=== PATIENT | male | born 1960 | race Caucasian/White ===

== ENCOUNTER → 2016-11-19 | Outpatient (CLI) | payer OTHER ==
[~2016-11-19] MED LIST: ASPI-99 PO; HYDR-3580 PO; HYDR25TA5 PO; IBUP800T23 PO; LANS30CA PO; MENSTAB5 PO; MULT-267 PO; OMEGCAP21 PO; TAMS0.4C4 PO; TRAM50TA PO; TRIPCAP4 PO
[2016-11-19 10:04] LABS: HEMATOCRIT 42.4 % (39.0-51.0); MEAN CELL VOLUME 83.2 FL (80.0-100.0); MEAN CORPUSCULAR HEMOGLOBIN 28.8 PG (27.0-34.0); MEAN CORPUSCULAR HGB CONC 34.7 % (32.0-36.0); PLATELET COUNT 259 TH/MM3 (150-450); RED BLOOD COUNT 5.09 MIL/MM3 (4.50-5.90); RED CELL DISTRIBUTION WIDTH 14.4 % (11.6-17.2); REVIEW FLAG FINAL; WHITE BLOOD COUNT 8.7 TH/MM3 (4.0-11.0)
[2016-11-19 10:16] LABS: PROTHROMBIN TIME - PATIENT 10.8 SEC (9.8-11.6)
[2016-11-19 10:16] LABS: BACTERIA, URINE MOD /hpf; BLOOD, URINE NEG (NEG); GLUCOSE,URINE NEG (NEG); HYALINE CAST, URINE 1 /lpf (RARE); KETONE, URINE NEG (NEG); MUCUS URINE FEW /lpf (OCC); PH, URINE 5.5 (5.0-8.5); SQUAMOUS EPITHELIAL CELL URINE <1 /hpf (0-5); URINE COLOR YELLOW (YELLW/STRAW)
[2016-11-19 10:21] LABS: NITRITE,URINE POS (NEG)
[2016-11-19 10:22] LABS: COMMENT (UR) CULTURE INDICATED; CULTURE IF INDICATED CULTURE INDICATED
[2016-11-19 10:30] LABS: BICARBONATE 31.3 MEQ/L (21.0-32.0); POTASSIUM 4.5 MEQ/L (3.5-5.1)
--- NOTE | 2016-11-19 14:25 | EKG ---
Date Performed: 11/19/2016 Time Performed: 09:19:59 PTAGE: 55 years EKG: Sinus rhythm LOW QRS VOLTAGE IN PRECORDIAL LEADS NONSPECIFIC T-WAVE ABNORMALITY BORDERLINE ECG NO PREVIOUS TRACING DOCTOR: Tomas Wilson Interpretating Date/Time 11/19/2016 14:22:12
== END ==
LOC: CPRE 08:58
PROVIDERS: ATTEND Orthopaedic Surgery
DX: Z01.810 Encounter for preprocedural cardiovascular examination (principal); Z01.812 Encounter for preprocedural laboratory examination; M16.11 Unilateral primary osteoarthritis, right hip; I10 Essential (primary) hypertension; M79.609 Pain in unspecified limb; R94.31 Abnormal electrocardiogram [ECG] [EKG]; B96.20 Unspecified Escherichia coli [E. coli] as the cause of diseases classified elsewhere
CPT/HCPCS: 36415; 80048; 81001; 85027; 85610; 85730; 87077; 87086; 87186; 93005

== ENCOUNTER 2016-12-03 05:31 | Day surgery (SDC) | payer OTHER ==
[~2016-12-03] VITALS: Ht 185.4 cm; Wt 132.3 kg
[~2016-12-03 05:31] MED LIST changes: -ASPI-99 PO; -HYDR-3580 PO; -MULT-267 PO; -OMEGCAP21 PO
[2016-12-03 05:55] VITALS: BP 177/97; PULSE 81; RESP 16; TEMP 98.8; O2SAT 96
[2016-12-03] MEDS ORDERED: LACTATED RINGER'S 1000 ML IV PRN (06:00)
[2016-12-03] MEDS ORDERED: METOPROLOL TARTRATE 25 MG TAB PO PRN (06:00)
[2016-12-03] MEDS ORDERED: INSULIN HUMAN REGULAR 1,000 UNITS/10 ML VIAL SQ PRN (06:00)
[2016-12-03] MEDS ORDERED: CHLORHEXIDINE GLUCONATE 2 % 1 PACK (2 CLOTHS) TOPICAL PRN (06:00)
[2016-12-03] MEDS ORDERED: GENTAMICIN SULFATE 80 MG/2 ML VIAL ONE (06:00)
[2016-12-03] MEDS ORDERED: POVIDONE IODINE 5% (ANTISEPSIS KIT) 4 APPLICATIONS EACH NARE PRN (06:00)
[2016-12-03] MEDS ORDERED: SODIUM CHLORID 0.9% 500 ML IV PRN (06:00)
[2016-12-03] MEDS ORDERED: CHLORHEXIDINE GLUCONATE 4% SOLN 120 ML BTL TOPICAL SCH (06:15)
[2016-12-03] MEDS ORDERED: CLINDAMYCIN 900 MG/NS 100 ML IV SCH ×2 (06:15)
[2016-12-03] MEDS ORDERED: EXPAREL PERI-ARTICULAR INJECTION (TOTAL VOL. 60 ML) P-ARTICULR SCH ×2 (07:00)
[2016-12-03] MEDS ORDERED: SODIUM CHLORIDE 0.9% IV SCH ×2 (07:00→10:00)
[2016-12-03] MEDS ORDERED: TRANEXAMIC ACID IV SCH ×2 (07:00→10:00)
== END 2016-12-03 07:03 | disposition home or self-care (01) ==
LOC: HSDI 05:31 → UNDOADMIN 05:31 → HSDC 05:31 → EDSTATUS 07:00 → UNDODISIN 07:03 → HSDC 07:03
PROVIDERS: ATTEND Orthopaedic Surgery
DX: Z53.8 Procedure and treatment not carried out for other reasons (principal); M16.11 Unilateral primary osteoarthritis, right hip; L98.9 Disorder of the skin and subcutaneous tissue, unspecified; I10 Essential (primary) hypertension
CPT/HCPCS: 86850; 86900; 86901; 99211; G0463; J1580; J7120

== ENCOUNTER 2016-12-14 11:39 | Inpatient (IN) | payer OTHER ==
[~2016-12-14] VITALS: Ht 185.4 cm; Wt 139.2 kg
[~2016-12-14 11:39] MED LIST changes: -MENSTAB5 PO; -TRIPCAP4 PO
[2017-01-21] MEDS ORDERED: MULT-267 PO (15:21)
[2017-01-21] MEDS ORDERED: OMEGCAP21 PO (15:21)
[2017-01-22] MEDS ORDERED: SODIUM CHLORID 0.9% 500 ML IV PRN (05:45)
[2017-01-22] MEDS ORDERED: CHLORHEXIDINE GLUCONATE 2 % 1 PACK (2 CLOTHS) TOPICAL PRN (05:45)
[2017-01-22] MEDS ORDERED: POVIDONE IODINE 5% (ANTISEPSIS KIT) 4 APPLICATIONS EACH NARE PRN (05:45)
[2017-01-22] MEDS ORDERED: METOPROLOL TARTRATE 25 MG TAB PO PRN (05:45)
[2017-01-22] MEDS ORDERED: LACTATED RINGER'S 1000 ML IV PRN (05:45)
[2017-01-22] MEDS ORDERED: CHLORHEXIDINE GLUCONATE 4% SOLN 120 ML BTL TOPICAL SCH (05:45)
[2017-01-22] MEDS ORDERED: INSULIN HUMAN REGULAR 1,000 UNITS/10 ML VIAL SQ PRN (05:45)
[2017-01-22 05:49] VITALS: BP_SYST 157; BP_SYST 159; BP_DIAS 90; BP_DIAS 95; PULSE 88; RESP 18; TEMP 98.6; O2SAT 96
[2017-01-22] MEDS ORDERED: GENTAMICIN SULFATE 80 MG/2 ML VIAL ONE (06:08)
[2017-01-22] MEDS ORDERED: ceFAZolin 2 GM PREMIX 50 ML ONE (06:34)
[2017-01-22] MEDS ORDERED: ACETAMINOPHEN 1000 MG/100 ML VIAL IV ONE (06:36)
[2017-01-22] MEDS ORDERED: DEXAMETHASONE SOD PHOS 4 MG/ML VIAL ONE (06:37)
[2017-01-22] MEDS ORDERED: FAMOTIDINE 20 MG/2 ML VIAL ONE (06:37)
[2017-01-22] MEDS ORDERED: MIDAZOLAM HCL 2 MG/2 ML VIAL ONE (06:37)
[2017-01-22] MEDS ORDERED: fentaNYL CITRATE 250 MCG/5 ML AMP ONE (06:37)
[2017-01-22] MEDS ORDERED: SODIUM CHLORIDE 0.9% IV SCH ×2 (07:00→10:00)
[2017-01-22] MEDS ORDERED: EXPAREL PERI-ARTICULAR INJECTION (TOTAL VOL. 60 ML) P-ARTICULR SCH ×2 (07:00)
[2017-01-22] MEDS ORDERED: TRANEXAMIC ACID IV SCH ×2 (07:00→10:00)
[2017-01-22] MEDS ORDERED: ROPIVACAINE PERI-ARTICULAR INJECTION. P-ARTICULR SCH ×5 (07:00)
--- NOTE | 2017-01-22 08:54 | HHI.FF ---
Face to Face Verification Diagnosis: (1) Status post total hip replacement, right Physical Therapy Gait training Hip: Total hip, Protocol: Right, Posterior hip precautions, Progress to weight bearing Canvas Knee Splint: When in bed & 2 pillows btw thighs Right LE Weight Bearing: WB as tolerated Right LE Range of Motion: Active ROM Nursing Nursing: Dressing changes Dressing Changes: Daily dressing change, Coverderm/Primapore Additional Instructions Remove steristrips on postop day 14. I have seen patient Timothy Delaney on 01/22/17. My clinical findings support the need for the requested home health care services because: Ltd mobility - disease progression Limited ability to care for self High risk of falls I certify that my clinical findings support that this patient is homebound because: Post-op weakness Unsteady gait/balance Unsafe to leave home unassisted Gaby Vera MD (Charles) Jan 22, 2017 08:54
[2017-01-22] MEDS ORDERED: [UNRECOGNIZED DRUG - OTHER] PO SCH (09:00)
[2017-01-22] MEDS: ASPIRIN EC 81 MG TABEC PO SCH ×2 (09:00→23:06)
[2017-01-22] MEDS: PANTOPRAZOLE SOD 40 MG DELAYED RELEASE TAB PO SCH (09:00)
[2017-01-22] MEDS ORDERED: MORPHINE SULFATE 8 MG/ML INJ IV PUSH PRN (09:00)
[2017-01-22] MEDS ORDERED: BISACODYL 10 MG SUPP RECTAL PRN (09:00)
[2017-01-22] MEDS ORDERED: MAGNESIUM HYDROXIDE SUSP 30 ML CUP PO PRN (09:00)
[2017-01-22] MEDS ORDERED: ZOLPIDEM TARTRATE 5 MG TAB PO PRN (09:00)
[2017-01-22] MEDS ORDERED: TRANEXAMIC ACID INJ 0 MG in SODIUM CHLORIDE 0.9% INJ 100 ML IV SCH (09:00)
[2017-01-22] MEDS ORDERED: ONDANSETRON HCL 4 MG/2 ML VIAL IVP PRN (09:00)
[2017-01-22] MEDS: HYDROCHLOROTHIAZIDE 25 MG TAB PO SCH (09:00)
[2017-01-22] MEDS: SODIUM CHLORIDE 0.9% FLUSH 5 ML FLUSH IVF SCH ×2 (09:00→21:00)
[2017-01-22] MEDS ORDERED: SODIUM CHLORIDE 0.9% FLUSH 5 ML FLUSH IVF PRN (09:00)
[2017-01-22] MEDS ORDERED: DO NOT ADM ANY ANTICOAGULANT DRUGS PRN (09:19)
[2017-01-22] MEDS ORDERED: Post-op Orders (for Pharmacy) MISC XX ONE (09:30)
[2017-01-22] MEDS: LACTATED RINGER'S 1000 ML INJ 1,000 ML IV SCH ×2 (09:30→21:18)
[2017-01-22] MEDS ORDERED: *morphine SULFATE 8 MG/ML PERIprocedure ONLY ONE ×2 (09:44→10:07)
[2017-01-22] MEDS: KETOROLAC TROMETHAMINE 30 MG/ML (IVP) VIAL IVP SCH ×2 (09:55→18:25)
--- NOTE | 2017-01-22 09:59 | RADRPT ---
EXAM DATE/TIME: 01/22/2017 09:40 [place] COMPARISON: No previous studies available for comparison. INDICATIONS : Post op right total hip. MEDICAL HISTORY : None. SURGICAL HISTORY : None. ENCOUNTER: Initial ACUITY: 1 day PAIN SCORE: 6/10 LOCATION: Right Hip. FINDINGS: Right total hip arthroplasty is present. Hardware appears intact. Alignment is anatomic. Visualized a djacent pelvis is unremarkable. CONCLUSION: Satisfactory appearance post right STERLING Tim Pedersen MD on January 22, 2017 at 9:55 Board Certified Radiologist. This report was verified electronically.
[2017-01-22 12:00] VITALS: BP 133/81; PULSE 82; RESP 13; TEMP 96.7; O2SAT 92
[2017-01-22] MEDS ORDERED: PROPOFOL 200 MG/20 ML AMP IV ONE (12:00)
[2017-01-22] MEDS ORDERED: NEOSTIGMINE 3 MG/3 ML SYR IV ONE (12:00)
[2017-01-22] MEDS ORDERED: ePHEDrine/NS 25 MG/5 ML SYR IV ONE (12:00)
[2017-01-22] MEDS ORDERED: PHENYLEPH/NS 1000 MCG/10 ML SYR IV ONE (12:00)
[2017-01-22] MEDS ORDERED: LACTATED RINGER'S 1000 ML INJ 2,000 ML IV ONE (12:00)
--- NOTE | 2017-01-22 13:14 | PD.PN.STU ---
Subjective Remarks Patient is a 56 yo male post-operative for total right hip replacement for severe osteoarthritic changes of the right hip. The patient states that there is some pain from movement from the bed to the chair. He believes his pain is well controlled on the current medication at this time. He reports that he had some physical therapy done in the bed earlier in the day. He states that PT might have him start to walk this evening but is definitely planning on more ambulation tomorrow with PT. He denies N/V, fever, chills, chest pain, new neurological/musculoskeletal weakness, or visual changes. Denies cough and has not had a bowel movement yet. PMH: GERD, HTN, osteoarthritic changes of the right hip and right knee, vocal cord polyp Past Surgical History: Right knee replacement, vocal cord polyp removal/BX Social: Denies tobacco, alcohol, illicit drugs Home Medications:HCTZ, tamulosin, Protonix Objective Vitals Physical Exam: General: In no acute distress& laying in chair comfortably HEENT: No conjunctival changes EYE: Extraocular muscles intact Cardiovascular: s1 and s2 appreciated, no rubs, murmurs, gallops Pulmonary: Clear to auscultation bilaterally, non labored breathing Abdominal: No pain on light palpation, no rebound or guarding Extremities: Posterior tibial pulses palpated bilaterally, Warm and good perfusion. Surgical Dressing on right hip with no signs purulent discharge or infection Psych: Patient is cooperative, alert, and pleasant. Alert and oriented X4 Vital Signs Date Time Temp Pulse Resp B/P Pulse Ox O2 Delivery O2 Flow Rate FiO2 01/22/17 10:25 97.6 86 15 135/75 95 Nasal Cannula 3 01/22/17 10:00 89 16 156/80 95 Nasal Cannula 3 01/22/17 09:45 82 15 145/73 95 Nasal Cannula 3 01/22/17 09:30 83 15 138/71 99 Nasal Cannula 3 01/22/17 09:22 97.9 70 15 131/66 97 Nasal Cannula 3 01/22/17 05:49 98.6 88 18 157/90 96 159/95 I/O 01/21/17 01/21/17 01/21/17 01/22/17 01/22/17 01/22/17 07:00 15:00 23:00 07:00 15:00 23:00 Intake Total 2200 ml Output Total 150 ml Balance 2050 ml Intake IV Total 200 ml Other 2000 ml Output Urine Total 0 ml Estimated Blood Loss 150 ml A/P Assessment and Plan Diagnostic Impression: 1. Postoperative right total hip 2. HTN 3. GERD 4. BPH Imaging Reviewed Operative Note Reviewed CBC & CMP Continue medications Surgery Following Continue PT this is consultation note pt seen and examined as above with at bedside chart reviwed plan of care dw student labs for am post op abx pain management and wound care per ortho post dvt prophylsix per ortho will follow thank you dr singh for consult will follow with you Osmel Maguire Jan 22, 2017 13:14 Erick Tang MD Jan 22, 2017 14:30
[2017-01-22] MEDS: ACETAMINOPHEN/HYDROcodone 325 MG/7.5 MG TAB PO PRN ×2 (15:11→23:07)
[2017-01-22 16:00] VITALS: BP 150/90; PULSE 85; RESP 16; TEMP 97.5; O2SAT 96
[2017-01-22 20:20] VITALS: BP 158/88; PULSE 91; RESP 17; TEMP 98.6; O2SAT 98
[2017-01-22] MEDS ORDERED: TAMSULOSIN HCL 0.4 MG CAP PO SCH (21:00)
[2017-01-23 00:25] VITALS: BP_SYST 108; BP_SYST 130; BP_DIAS 65; BP_DIAS 81; PULSE 71; PULSE 81; RESP 16; RESP 17; TEMP 97.1; TEMP 97.5; O2SAT 96; O2SAT 97
[2017-01-23] MEDS: KETOROLAC TROMETHAMINE 30 MG/ML (IVP) VIAL IVP SCH ×3 (00:48→12:50)
[2017-01-23 04:15] VITALS: BP 141/74; PULSE 85; RESP 17; TEMP 97; O2SAT 95
[2017-01-23] MEDS: ACETAMINOPHEN/HYDROcodone 325 MG/7.5 MG TAB PO PRN ×3 (06:28→15:05)
--- NOTE | 2017-01-23 07:01 | PD.ORT.PN ---
Subjective Post Op Day #: 1 Subjective Remarks He is doing well. There is some incisional pain.. Distance Walked 5 feet twice. Objective Vitals Vital Signs Date Time Temp Pulse Resp B/P Pulse Ox O2 Delivery O2 Flow Rate FiO2 01/23/17 04:15 97.0 85 17 141/74 95 01/23/17 01:48 18 01/23/17 00:25 97.1 81 17 130/81 96 01/22/17 23:43 18 01/22/17 21:00 Room Air 01/22/17 20:20 98.6 91 17 158/88 98 01/22/17 16:00 97.5 85 16 150/90 96 01/22/17 12:00 96.7 82 13 133/81 92 01/22/17 10:25 97.6 86 15 135/75 95 Nasal Cannula 3 01/22/17 10:00 89 16 156/80 95 Nasal Cannula 3 01/22/17 09:45 82 15 145/73 95 Nasal Cannula 3 01/22/17 09:30 83 15 138/71 99 Nasal Cannula 3 01/22/17 09:22 97.9 70 15 131/66 97 Nasal Cannula 3 I/O 01/22/17 01/22/17 01/22/17 01/23/17 01/23/17 01/23/17 07:00 15:00 23:00 07:00 15:00 23:00 Intake Total 3340 ml 720 ml 480 ml Output Total 1275 ml 700 ml Balance 2065 ml 720 ml -220 ml Intake Oral 480 ml 720 ml 480 ml IV Total 860 ml Other 2000 ml Output Urine Total 1125 ml 700 ml Estimated Blood Loss 150 ml # Voids 3 3 # Bowel Movements 0 0 Imaging Hip x-ray looks good. Last 72 hours Impressions Hip X-Ray 01/22/17 0000 Signed Impressions: Service Date/Time: Sunday, January 22, 2017 09:40 - CONCLUSION: Satisfactory appearance post right STERLING Tim Pedersen MD Objective Remarks He is resting comfortably, supine in bed. The neurovascular status is intact. The dressing is dry and intact. Assessment & Plan Ortho Post Op Day #: 1 Problem List: (1) Status post total hip replacement, right Plan: Continue postop care and PT. Assessment and Plan Condition: Good. Orthopaedically stable. DVT prophylaxis: ASA, TEDs, sequentials. Discharge plans : Home with C. Has appointment. Rx [place] 7.5/325 Gaby Vera MD (Charles) Jan 23, 2017 07:01
[2017-01-23 07:39] VITALS: BP 143/80; PULSE 88; RESP 17; TEMP 98.6; O2SAT 96
[2017-01-23] MEDS ORDERED: ASPI-99 PO (07:42)
[2017-01-23] MEDS ORDERED: HYDR-3580 PO (07:42)
[2017-01-23] MEDS: HYDROCHLOROTHIAZIDE 25 MG TAB PO SCH (08:22)
[2017-01-23] MEDS: ASPIRIN EC 81 MG TABEC PO SCH (08:22)
[2017-01-23] MEDS: PANTOPRAZOLE SOD 40 MG DELAYED RELEASE TAB PO SCH (08:22)
[2017-01-23] MEDS: SODIUM CHLORIDE 0.9% FLUSH 5 ML FLUSH IVF SCH (08:22)
[2017-01-23] MEDS ORDERED: MULTIVITAMIN TAB PO SCH (09:00)
[2017-01-23 09:05] VITALS: O2SAT 94
[2017-01-23] MEDS: LACTATED RINGER'S 1000 ML INJ 1,000 ML IV SCH (09:48)
[2017-01-23 11:48] VITALS: BP 154/87; PULSE 93; RESP 17; TEMP 98.2; O2SAT 95
[2017-01-23 12:10] LABS: HEMATOCRIT 42.2 % (39.0-51.0); MEAN CORPUSCULAR HEMOGLOBIN 28.2 PG (27.0-34.0); MEAN CORPUSCULAR HGB CONC 33.2 % (32.0-36.0); PLATELET COUNT 225 TH/MM3 (150-450); RED BLOOD COUNT 4.97 MIL/MM3 (4.50-5.90); RED CELL DISTRIBUTION WIDTH 14.1 % (11.6-17.2); REVIEW FLAG FINAL; WHITE BLOOD COUNT 11.8 TH/MM3 (4.0-11.0)
--- NOTE | 2017-01-23 12:12 | PD.PN.STU ---
Subjective Remarks Patient is a 56 yo male POD 2 for total right hip replacement for severe osteoarthritic changes of the right hip. The patient states that his pain is well controlled and there is only some discomfort after walking around on the floor. He believes the norco is controlling his pain well. He is able to get to the chair and bathroom by himself at this point. Patient states that the surgery told him that he would be able to go home later today. Just awaiting CBC & BMP. He denies N/V, fever, chills, chest pain, new neurological/ musculoskeletal weakness, or visual changes. PMH: GERD, HTN, osteoarthritic changes of the right hip and right knee, vocal cord polyp Past Surgical History: Right knee replacement, vocal cord polyp removal/BX Social: Denies tobacco, alcohol, illicit drugs Home Medications:HCTZ, tamulosin, Protonix Family HX: Negative Objective Vitals Objective Objective Vitals Physical Exam: General: In no acute distress& laying in chair comfortably HEENT: No conjunctival changes EYE: Extraocular muscles intact Cardiovascular: s1 and s2 appreciated, no rubs, murmurs, gallops Pulmonary: Clear to auscultation bilaterally, non labored breathing Abdominal: No pain on light palpation, no rebound or guarding Extremities: Posterior tibial pulses palpated bilaterally, Warm and good perfusion. Surgical Dressing on right hip with no signs purulent discharge or infection Psych: Patient is cooperative, alert, and pleasant. Alert and oriented X4 Vital Signs Date Time Temp Pulse Resp B/P Pulse Ox O2 Delivery O2 Flow Rate FiO2 01/23/17 11:48 98.2 93 17 154/87 95 01/23/17 09:05 94 21 01/23/17 07:39 98.6 88 17 143/80 96 01/23/17 07:39 18 01/23/17 07:39 18 01/23/17 07:16 Room Air 01/23/17 04:15 97.0 85 17 141/74 95 01/23/17 00:25 97.1 81 17 130/81 96 01/22/17 23:43 18 01/22/17 21:00 Room Air 01/22/17 20:20 98.6 91 17 158/88 98 01/22/17 16:00 97.5 85 16 150/90 96 I/O 6/27/01/22/17 01/22/17 01/23/17 01/23/17 01/23/17 07:00 15:00 23:00 07:00 15:00 23:00 Intake Total 3340 ml 720 ml 480 ml Output Total 1275 ml 700 ml Balance 2065 ml 720 ml -220 ml Intake Oral 480 ml 720 ml 480 ml IV Total 860 ml Other 2000 ml Output Urine Total 1125 ml 700 ml Estimated Blood Loss 150 ml # Voids 3 3 # Bowel Movements 0 0 A/P Assessment and Plan Diagnostic Impression: 1. Postoperative right total hip POD 1 2. HTN 3. GERD 4. BPH Awaiting CBC & CMP Continue medications Surgery Following Continue PT Plan for DC Patient seen and examined as above Labs reviewed Discussed with medical student about above note and plan of care Discussed with patient Patient is going home today Overall a stable this is consultation note pt seen and examined as above with at bedside chart reviwed plan of care dw student labs for am post op abx pain management and wound care per ortho post dvt prophylsix per ortho will follow thank you dr singh for consult will follow with you Osmel Maguire Jan 23, 2017 12:12 Erick Tang MD Jan 23, 2017 12:38
[2017-01-23 12:33] LABS: BICARBONATE 28.5 MEQ/L (21.0-32.0); POTASSIUM 3.7 MEQ/L (3.5-5.1)
[2017-01-23] MEDS ORDERED: DOCUSATE SODIUM 100 MG CAP PO SCH (21:00)
--- NOTE | 2017-01-24 07:31 | MP ---
cc: Monserrat BUSTOS. DATE OF SURGERY 01/22/2017 PREOPERATIVE DIAGNOSIS Osteoarthritis right hip. POSTOPERATIVE DIAGNOSIS Osteoarthritis right hip. OPERATION PERFORMED Right total hip arthroplasty with Irene prosthesis. SURGEON Nicholas Bustos MD [employer] Lynette Beltre R.N. and ALVIN Wise INDICATIONS AND FINDINGS This 56-year-old man has at least a 3-year history of right hip pain. He had arthroscopic removal of loose bodies in 2013, but has had progressive worsening of his pain to the point that he can walk only 500 feet due to the pain. He has stiffness on motion with catching, giving-way and difficulty ascending and descending stairs, difficulty sleeping and other mechanical symptoms. He has not responded to anti-inflammatory agents, the above-noted arthroscopic surgery, analgesics and activity modification and ambulatory aids. Physical findings showed limited range of motion in the hip with tenderness on motion and a significantly antalgic gait. X-rays showed severe osteoarthritis with loss of articular cartilage to [id number] with large osteophytes, subchondral sclerosis and subchondral cysts. OPERATIVE FINDINGS Consistent with radiographic findings with there being a deformation of the femoral head and acetabular osteophytes of a large proportion with subchondral sclerosis and erosion of the articular cartilage. The prosthesis used was a [place] prosthesis with the acetabular component being a Tritanium hemispherical cluster cup shell size 54 mm outer diameter with a Trident X3 0 degrees polyethylene insert, 32 mm inner diameter. A single screw was used. The femoral component was an Accolade II stem size 6 x 132 degree neck angle with a Biolox Delta ceramic head size 32 mm outer diameter with a neck length of +0. PROCEDURE The patient was brought to the operating room and a general anesthetic was administered. He was placed into a lateral position on a Biomet positioner with an axillary roll under the left shoulder. He received prophylactic antibiotics in the form of Ancef and also received Tranexamic acid according to the protocol. The right hip was then prepped with alcohol, Hibiclens and Chloraprep and draped in the usual manner with the hip draped free. A posterolateral incision was made going from about 5 cm distal to the tip of the greater trochanter and curving posteriorly over the fibers of the gluteus salvador for a total of approximately 15-18 cm. The incision was deepened through subcutaneous tissues to the fascia corey and gluteus fascia which were identified. A 2-3 cm incision was made into the fascial corey up to the tip of the greater trochanter and then posteriorly into the gluteus salvador. Dissection was carried down to the posterior aspect of the hip. A Charnley retractor was inserted with wound towels. The interval between the gluteus minimus and the pyriformis was developed and a retractor placed. The piriformis and obturator externus conjoined tendon was released from the undersurface of the greater trochanter and reflected posteriorly. The capsulotomy was carried out going over to the upper acetabulum and down towards the upper portion of the neck and then curving down from inside the hip towards the lesser trochanter. The hip was dislocated. The femoral neck was transected with the oscillating saw at the appropriate level. The femoral head was removed. The retractor was positioned in place. Femoral preparation was initiated with the box osteotome followed by a rongeur and a canal finding awl. The broaching was initiated at size zero and went in one size increments up to size six. This gave excellent fit and fill and did not progress further. When this was seated, the hip was repositioned and the acetabulum exposed. Retractors were placed about the acetabulum. A small incision was made in the inferior capsule to allow for visualization. With retractors in place, the soft tissues were removed from the acetabulum. Reaming then started at 47 mm and went in 1 mm increments up to a size 54. The 54 mm trial was impacted into place and appeared appropriate. After this was done and removed, a 54 mm Tritanium cluster cup was impacted into place. A single drill hole was made into the upper portion of this and a single screw placed. This gave excellent fixation. The liner was then inserted after irrigating this. The anterior osteophytes and superior osteophytes were trimmed and removed. Local anesthetic was administered peripherally around the acetabulum. Attention was directed the femur. Calcar planing was carried out followed by placement of the head and neck prosthesis. The hip was reduced with an +0 neck length, 132 degrees neck prosthesis. The stability was excellent. There was no pistoning. The leg lengths appeared appropriate. The motion was excellent. The hip was then dislocated. The broach was removed. The medullary canal was cleaned with pulse lavage. Local anesthetic was injected about the proximal femur. The femoral prosthesis was impacted into the proximal femur and seated appropriately. The trial reduction was again carried out with a +0 neck length and was as previously noted. This was then removed and the actual Biolox Delta ceramic head was impacted onto the cleaned and dried trunnion of the femur. When this was appropriately seated, the hip was reduced. The motion was excellent. The stability was excellent. The leg length was appropriate. There was no pistoning. The wound closure then commenced using transosseous sutures of #1 Vicryl with a Krackow technique for reattachment of the capsule and external rotators into the appropriate positions. Prior to reattachment of the piriformis and obturator externum, the capsule was repaired with a running #1 Vicryl suture. The fascia corey and gluteus fascia were repaired with #1 Vicryl interrupted [id number] sutures. Local anesthesia was administered into the structures. The subcutaneous tissues were closed with 2-0 Vicryl interrupted simple sutures with buried knots. The skin was closed with continuous subcuticular closure of 4-0 Monocryl. The wound was then dressed with Steri-Strips followed by dry dressing, sterile ABD and Medipore compression hip dressing. A knee immobilizer was applied. The patient was transferred to the recovery room in satisfactory condition having tolerated the procedure well. Counts were correct. Specimens none. Estimated blood loss of 300 mL. MD EH Man/SHELLY /9:05 AM /7:20 AM
== END 2017-01-23 15:14 | disposition home health service (06) | DRG 470 ==
LOC: HSDI 01-22 05:18 → N06A 01-22 10:35
PROVIDERS: ADMIT Orthopaedic Surgery; ATTEND Orthopaedic Surgery
PROC: 0SR903A Replacement of Right Hip Joint with Ceramic Synthetic Substitute, Uncemented, Open Approach (ICD-10-PCS; principal; 2017-01-22 06:38)
DX: M16.11 Unilateral primary osteoarthritis, right hip (principal); I10 Essential (primary) hypertension; K21.9 Gastro-esophageal reflux disease without esophagitis; N40.0 Benign prostatic hyperplasia without lower urinary tract symptoms; Z96.651 Presence of right artificial knee joint
CPT/HCPCS: 73502; 80048; 85027; 86850; 86900; 86901; 94150; C1776; C9290; J0131; J0690; J1100; J1580; J1885; J2250; J2270; J2370; J2710; J3010; J7120; L1830